=== PATIENT | male | born 1995 | race American Indian/Alaskan Native ===

== ENCOUNTER 2018-01-14 13:52 | Inpatient (IN) | payer BC ==
[2018-01-14 13:57] VITALS: BMI 25.8
--- NOTE | 2018-01-14 14:06 | C.PDOC ---
History Of Present Illness 22 year old male patient presents to the ER requesting detox for heroin. Patient states he has been inhaling heroin for x1 year. His last dose was yesterday afternoon. Patient notes this is his first detox for heroin. Patient denies fever, chills, nausea, vomiting, abdominal pain, and diarrhea, suicidal or homicidal ideation. Time Seen by Provider: 01/14/18 14:03 Chief Complaint (Nursing): Substance Abuse History Per: Patient History/Exam Limitations: no limitations Past Medical History Reviewed: Historical Data, Nursing Documentation, Vital Signs Vital Signs: Last Vital Signs Temp 98.6 F 01/14/18 16:51 Pulse 86 01/14/18 16:51 Resp 18 01/14/18 16:51 BP 128/78 01/14/18 16:51 Pulse Ox 100 01/14/18 18:03 - Medical History PMH: Asthma Family History: States: Unknown Family Hx - Social History Hx Alcohol Use: No Hx Substance Use: Yes (heroin) - Immunization History Hx Tetanus Toxoid Vaccination: No Hx Influenza Vaccination: Yes Hx Pneumococcal Vaccination: No Review Of Systems Except As Marked, All Systems Reviewed And Found Negative. Constitutional: Positive for: Other (requesting detox). Negative for: Fever, Chills Gastrointestinal: Negative for: Nausea, Vomiting, Abdominal Pain, Diarrhea Physical Exam - Physical Exam Appears: Well, Non-toxic, No Acute Distress Skin: Normal Color, Warm, Dry Head: Atraumatic, Normacephalic Eye(s): bilateral: Normal Inspection Ear(s): Bilateral: Normal Nose: Normal Oral Mucosa: Moist Throat: Normal Neck: Normal ROM, Supple Chest: Symmetrical, No Deformity Cardiovascular: Rhythm Regular Respiratory: Normal Breath Sounds, No Rales, No Rhonchi, No Wheezing Gastrointestinal/Abdominal: Soft, No Tenderness Back: No CVA Tenderness Extremity: Normal ROM (x4) Neurological/Psych: Oriented x3, Normal Speech, Normal Motor, Normal Sensation, Normal Reflexes Gait: Steady ED Course And Treatment - Laboratory Results Result Diagrams: 01/14/18 14:13 01/14/18 14:13 Lab Interpretation: Abnormal (leukocytosis, trace of leuk est and elevated wbc of urine) O2 Sat by Pulse Oximetry: 100 (RA) Pulse Ox Interpretation: Normal Medical Decision Making Medical Decision Making: Impression: requesting detox for heroin Plans: -- blood work -- keflex -- urine cx -- UA Reassess: Patient is resting comfortably. Tolerating PO. Patient will receive a detox bed for his detox for heroin. Pt was seen by section gang worker and was accepted by Dr. Abdi. RECOMMEND KEFLEX FOR URINARY TRACK INFECTION AND REPEAT CBC. PLEASE ORDER HOSPITALIST EVALUATION ON THE FLOOR. Disposition Counseled Patient/Family Regarding: Studies Performed, Diagnosis - Disposition Disposition: HOSPITALIZED Disposition Time: 16:25 Condition: STABLE - Clinical Impression Clinical Impression: Opioid dependence, Urinary tract infection, Leukocytosis - PA / SUSTAINABLE COMMUNITIES DESIGNER / Resident Statement MD/ has reviewed & agrees with the documentation as recorded. - Scribe Statement The provider has reviewed the documentation as recorded by the Arya Silverio Do All medical record entries made by the Scribe were at my direction and personally dictated by me. I have reviewed the chart and agree that the record accurately reflects my personal performance of the history, physical exam, medical decision making, and the department course for this patient. I have also personally directed, reviewed, and agree with the discharge instructions and disposition. Decision To Admit - Pt Status Changed To: Hospital Disposition Of: Inpatient - Admit Certification Admit to Inpatient:: After my assessment, the patient will require hospitalization for at least two midnights. This is because of the severity of symptoms shown, intensity of services needed, and/or the medical risk in this patient being treated as an outpatient. - InPatient: Physician Admission Certification: I certify that this patient requires 2 or more midnights of care for the following reason:: Pt admitted for opiod detox. will treat uti with keflex and repeat cbc. - . Bed Request Type: Detox Admitting Physician: Lalo Abdi Patient Diagnosis: Opioid dependence, Urinary tract infection, Leukocytosis
[2018-01-14 14:16] LABS: BASO # 0.1 K/uL (0.0-0.2); BASO % 0.5 % (0.0-2.0); EOS # 0.4 K/uL (0.0-0.7); EOS % 2.7 % (0.0-4.0); HEMOGLOBIN 13.6 g/dL (12.0-18.0); LYMPH # 1.8 K/uL (1.0-4.3); LYMPH % 13.4 % (20.0-40.0); MEAN CELL VOLUME 84.8 fL (80.0-94.0); MEAN CORPUSCULAR HEMOGLOBIN 28.1 pg (27.0-31.0); MEAN CORPUSCULAR HGB CONC 33.1 g/dL (33.0-37.0); MEAN PLATELET VOLUME 8.7 fL (7.2-11.7); MONO % 7.4 % (0.0-10.0); NEUT # 10.4 K/uL (1.8-7.0); RBC 4.83 Mil/uL (4.40-5.90); RED CELL DISTRIBUTION WIDTH 13.1 % (11.5-14.5); WHITE BLOOD COUNT 13.6 K/uL (4.8-10.8)
[2018-01-14 14:30] LABS: ALB/GLOB RATIO 1.4 (1.0-2.1); ALBUMIN 4.3 g/dL (3.5-5.0); ALT/SGPT 21 U/L (21-72); AST/SGOT 18 U/L (17-59); BLOOD UREA NITROGEN 9 mg/dL (9-20); CALCIUM 9.7 mg/dl (8.6-10.4); GFR AFRICAN-AMERICAN > 60; GFR NON-AFRICAN AMERICAN > 60
[2018-01-14 14:31] LABS: URINE AMORPHOUS SEDIMENT FEW /ul (<OCC); URINE BILIRUBIN NEGATIVE (NEGATIVE); URINE BLOOD NEGATIVE (NEGATIVE); URINE CLARITY Hazy (Clear); URINE COLOR Yellow (YELLOW); URINE GLUCOSE (UA) NORMAL (Normal); URINE LEUKOCYTE ESTERASE TRACE Leu/uL (Negative); URINE PROTEIN NEGATIVE (NEGATIVE)
[2018-01-14 14:43] LABS: BARBITURATES, UR NEGATIVE (NEGATIVE); BENZODIAZEPINES, UR NEGATIVE (NEGATIVE); PHENCYCLIDINE, UR NEGATIVE (NEGATIVE)
[2018-01-14 14:44] LABS: OPIATES, UR POSITIVE (NEGATIVE)
--- NOTE | 2018-01-14 16:45 | PCM.BM ---
<Cristobal Acosta - Last Filed: 01/14/18 16:44> Treatment Plan Problems - Problems identified on initial assessmt potential for opiate withdrawal Date Initiated: 01/14/18 Time Initiated: 16:45 Status: Active Treatment assets and liabiliti Patient Assests: cognitively intact Patient Liabilities: substance abuse - Milieu Protocol Maintain good personal hygiene: daily Encourage regular showers, daily Remind patient to perform daily oral care, daily Assist patient to perform ADL's Maintain personal safety: every shift Educate patient to report safety concerns to staff, every shift Monitor environment for contraband/sharps Medication safety: Monitor for expected outcome, potential side effects: every shift, Assess barriers to learning: every shift, Assess readiness for medication education: every shift <Yahir Lee - Last Filed: 01/18/18 08:58> - Diagnosis (1) Opioid dependence Status: Acute Interventions: 01/16/18 18:58 * Assess 7x/week regarding severity of withdrawal * Educate regarding risks, benefits, side effects and alternatives of medications * Use Motivational Interviewing for abstinence * Use CBT for relapse prevention * Medication management for withdrawal symptoms * Encourage medication assisted treatment *
[2018-01-14] MEDS ORDERED: Buprenorphine Hydrochloride 2 mg SL ONE (18:00)
[2018-01-14] MEDS: Buprenorphine Hydrochloride 2 mg SL SCH ×3 (19:03→20:58)
--- NOTE | 2018-01-15 02:16 | CP.PCM.CON ---
<Brian Simon P - Last Filed: 01/15/18 04:29> Meds Allergies/Adverse Reactions: Allergies Allergy/AdvReac Type Severity Reaction Status Date / Time No Known Allergies Allergy Verified 01/14/18 13:56 - Medications Medications: Current Medications Al Hydrox/Mg Hydrox/Simethicone (Maalox 30 Ml) 30 ml PO TID PRN PRN Reason: Indigestion / Heartburn Buprenorphine HCl (Subutex) 6 mg SL .TAPER MADELAINE PRN Reason: Taper Stop: 01/18/18 17:59 Clonidine HCl (Catapres) 0.1 mg PO Q8 PRN PRN Reason: COWS Score More or Equal to 5 Last Admin: 01/14/18 21:18 Dose: 0.1 mg Dicyclomine HCl (Bentyl) 10 mg PO Q6 PRN PRN Reason: Abdominal Cramps Last Admin: 01/14/18 21:17 Dose: 10 mg Ibuprofen (Motrin Tab) 400 mg PO Q6 PRN PRN Reason: Pain, moderate (4-7) Last Admin: 01/14/18 21:18 Dose: 400 mg Loperamide HCl (Imodium) 2 mg PO Q8 PRN PRN Reason: Diarrhea Ondansetron HCl (Zofran Tab) 4 mg PO Q8 PRN PRN Reason: Nausea/Vomiting Last Admin: 01/14/18 21:18 Dose: 4 mg Trazodone HCl (Desyrel) 50 mg PO HS [facility] Last Admin: 01/14/18 21:17 Dose: 50 mg Results - Vital Signs Recent Vital Signs: Last Vital Signs Temp 98.8 F 01/14/18 21:05 Pulse 78 01/14/18 21:05 Resp 18 01/14/18 21:05 BP 120/67 01/14/18 21:05 Pulse Ox 99 01/14/18 21:05 - Labs Result Diagrams: 01/14/18 14:13 01/14/18 14:13 Labs: Laboratory Results - last 24 hr 01/14/18 01/14/18 01/14/18 14:13 14:13 14:13 WBC 13.6 H RBC 4.83 Hgb 13.6 D Hct 40.9 MCV 84.8 D MCH 28.1 MCHC 33.1 RDW 13.1 Plt Count 234 MPV 8.7 Neut % (Auto) 76.0 H Lymph % (Auto) 13.4 L [place] % (Auto) 7.4 Eos % (Auto) 2.7 Baso % (Auto) 0.5 Neut # (Auto) 10.4 H Lymph # (Auto) 1.8 [place] # (Auto) 1.0 H Eos # (Auto) 0.4 Baso # (Auto) 0.1 Sodium 141 Potassium 3.8 Chloride 99 Carbon Dioxide 31 H Anion Gap 15 BUN 9 Creatinine 0.8 Est GFR ( Amer) > 60 Est GFR (Non-Af Amer) > 60 Random Glucose 133 H Calcium 9.7 Total Bilirubin 0.5 AST 18 ALT 21 Alkaline Phosphatase 72 Total Protein 7.3 Albumin 4.3 Globulin 3.0 Albumin/Globulin Ratio 1.4 Urine Color Yellow Urine Clarity Hazy Urine pH 7.0 Ur Specific [place] 1.021 Urine Protein Negative Urine Glucose (UA) Normal Urine Ketones Negative Urine Blood Negative Urine Nitrate Negative Urine Bilirubin Negative Urine Urobilinogen 2.0 Ur Leukocyte Esterase Trace Urine WBC (Auto) 8 H Urine RBC (Auto) 3 Amorphous Sediment Few H Urine Opiates Screen Urine Methadone Screen Ur Barbiturates Screen Ur Phencyclidine Scrn Ur Amphetamines Screen U Benzodiazepines Scrn U Oth Cocaine Metabols U Cannabinoids Screen Alcohol, Quantitative < 10 01/14/18 14:13 WBC RBC Hgb Hct MCV MCH MCHC RDW Plt Count MPV Neut % (Auto) Lymph % (Auto) [place] % (Auto) Eos % (Auto) Baso % (Auto) Neut # (Auto) Lymph # (Auto) [place] # (Auto) Eos # (Auto) Baso # (Auto) Sodium Potassium Chloride Carbon Dioxide Anion Gap BUN Creatinine Est GFR ( Amer) Est GFR (Non-Af Amer) Random Glucose Calcium Total Bilirubin AST ALT Alkaline Phosphatase Total Protein Albumin Globulin Albumin/Globulin Ratio Urine Color Urine Clarity Urine pH Ur Specific [place] Urine Protein Urine Glucose (UA) Urine Ketones Urine Blood Urine Nitrate Urine Bilirubin Urine Urobilinogen Ur Leukocyte Esterase Urine WBC (Auto) Urine RBC (Auto) Amorphous Sediment Urine Opiates Screen Positive H Urine Methadone Screen Negative Ur Barbiturates Screen Negative Ur Phencyclidine Scrn Negative Ur Amphetamines Screen Negative U Benzodiazepines Scrn Negative U Oth Cocaine Metabols Negative U Cannabinoids Screen Positive H Alcohol, Quantitative Attending/Attestation - Attestation I have personally seen and examined this patient.: Yes I have fully participated in the care of the patient.: Yes I have reviewed all pertinent clinical information: Yes Notes (Text): Assessment A/w heroin withdrawal for detox Medicine consulted for leucocytosis, mainly PMN, and wbc in urine, patient doesn 't have any clinical sighs and symptoms of active infection, urine picture is nonspecific, leucocytosis is likely form stress of heroin withdrawal. Plan No abx recommended Detox as per unit. Counselled about substance abuse. <Steve Wong - Last Filed: 01/15/18 05:50> History of Present Illness - History of Present Illness History of Present Illness: 22 yo male with PMh of substance abuse, heroin dependance in detox unit with a one week history of dark urine. Pt says he has been hydrating with only sodas and juice not water. Pt had a UA that showed trace WBC and had a slightly elavated WBC on CBC 14. Pt is asymptomatic Denies burning, itching, back pain, fevers chills, n/v, CP SOB Review of Systems - Constitutional Constitutional: As Per HPI - EENT Eyes: As Per HPI Ears: As Per HPI Nose/Mouth/Throat: As Per HPI - Cardiovascular Cardiovascular: As Per HPI - Respiratory Respiratory: As Per HPI - Gastrointestinal Gastrointestinal: As Per HPI - Genitourinary Genitourinary: As Per HPI - Reproductive: Male Reproductive:Male: As Per HPI - Musculoskeletal Musculoskeletal: As Per HPI - Integumentary Integumentary: As Per HPI Past Patient History - Infectious Disease Hx of Infectious Diseases: None - Past Medical History & Family History Past Medical History?: Yes - Past Social History Smoking Status: Light Smoker < 10 Cigarettes Daily - CARDIAC Hx Cardiac Disorders: No Hx Hypertension: No - PULMONARY Hx Asthma: Yes - NEUROLOGICAL HX Cerebrovascular Accident: No Hx Seizures: No - HEMATOLOGICAL/ONCOLOGICAL Hx Cancer: No Hx Human Immunodeficiency Virus (HIV): No - MUSCULOSKELETAL/RHEUMATOLOGICAL Hx Falls: No - GENITOURINARY/GYNECOLOGICAL Hx Sexually Transmitted Disorders: No - PSYCHIATRIC Hx Substance Use: Yes - SURGICAL HISTORY Hx Surgeries: No - ANESTHESIA Hx Anesthesia: No Meds - Medications Medications: Current Medications Al Hydrox/Mg Hydrox/Simethicone (Maalox 30 Ml) 30 ml PO TID PRN PRN Reason: Indigestion / Heartburn Buprenorphine HCl (Subutex) 6 mg SL .TAPER MADELAINE PRN Reason: Taper Stop: 01/18/18 17:59 Clonidine HCl (Catapres) 0.1 mg PO Q8 PRN PRN Reason: COWS Score More or Equal to 5 Last Admin: 01/14/18 21:18 Dose: 0.1 mg Dicyclomine HCl (Bentyl) 10 mg PO Q6 PRN PRN Reason: Abdominal Cramps Last Admin: 01/14/18 21:17 Dose: 10 mg Ibuprofen (Motrin Tab) 400 mg PO Q6 PRN PRN Reason: Pain, moderate (4-7) Last Admin: 01/14/18 21:18 Dose: 400 mg Loperamide HCl (Imodium) 2 mg PO Q8 PRN PRN Reason: Diarrhea Ondansetron HCl (Zofran Tab) 4 mg PO Q8 PRN PRN Reason: Nausea/Vomiting Last Admin: 01/14/18 21:18 Dose: 4 mg Trazodone HCl (Desyrel) 50 mg PO HS [facility] Last Admin: 01/14/18 21:17 Dose: 50 mg Physical Exam - Constitutional Appears: Well, Non-toxic, No Acute Distress - Head Exam Head Exam: ATRAUMATIC, NORMAL INSPECTION - Eye Exam Eye Exam: EOMI, Normal appearance - ENT Exam ENT Exam: Mucous Membranes Moist, Normal Exam - Neck Exam Neck exam: Positive for: Normal Inspection - Respiratory Exam Respiratory Exam: Clear to Auscultation Bilateral, NORMAL BREATHING PATTERN - Cardiovascular Exam Cardiovascular Exam: RRR, +S1, +S2. absent: Systolic Murmur - GI/Abdominal Exam GI & Abdominal Exam: Soft. absent: Tenderness - Back Exam Back exam: NORMAL INSPECTION. absent: tenderness - Neurological Exam Neurological exam: Alert, CN II-XII Intact, Normal Gait, Oriented x3 - Psychiatric Exam Psychiatric exam: Normal Affect, Normal Mood - Skin Skin Exam: Dry, Normal Color, Warm Results - Vital Signs Recent Vital Signs: Last Vital Signs Temp 98.8 F 01/14/18 21:05 Pulse 78 01/14/18 21:05 Resp 18 01/14/18 21:05 BP 120/67 01/14/18 21:05 Pulse Ox 99 01/14/18 21:05 - Labs Result Diagrams: 01/14/18 14:13 01/14/18 14:13 Labs: Laboratory Results - last 24 hr 01/14/18 01/14/18 01/14/18 14:13 14:13 14:13 WBC 13.6 H RBC 4.83 Hgb 13.6 D Hct 40.9 MCV 84.8 D MCH 28.1 MCHC 33.1 RDW 13.1 Plt Count 234 MPV 8.7 Neut % (Auto) 76.0 H Lymph % (Auto) 13.4 L [place] % (Auto) 7.4 Eos % (Auto) 2.7 Baso % (Auto) 0.5 Neut # (Auto) 10.4 H Lymph # (Auto) 1.8 [place] # (Auto) 1.0 H Eos # (Auto) 0.4 Baso # (Auto) 0.1 Sodium 141 Potassium 3.8 Chloride 99 Carbon Dioxide 31 H Anion Gap 15 BUN 9 Creatinine 0.8 Est GFR ( Amer) > 60 Est GFR (Non-Af Amer) > 60 Random Glucose 133 H Calcium 9.7 Total Bilirubin 0.5 AST 18 ALT 21 Alkaline Phosphatase 72 Total Protein 7.3 Albumin 4.3 Globulin 3.0 Albumin/Globulin Ratio 1.4 Urine Color Yellow Urine Clarity Hazy Urine pH 7.0 Ur Specific [place] 1.021 Urine Protein Negative Urine Glucose (UA) Normal Urine Ketones Negative Urine Blood Negative Urine Nitrate Negative Urine Bilirubin Negative Urine Urobilinogen 2.0 Ur Leukocyte Esterase Trace Urine WBC (Auto) 8 H Urine RBC (Auto) 3 Amorphous Sediment Few H Urine Opiates Screen Urine Methadone Screen Ur Barbiturates Screen Ur Phencyclidine Scrn Ur Amphetamines Screen U Benzodiazepines Scrn U Oth Cocaine Metabols U Cannabinoids Screen Alcohol, Quantitative < 10 01/14/18 14:13 WBC RBC Hgb Hct MCV MCH MCHC RDW Plt Count MPV Neut % (Auto) Lymph % (Auto) [place] % (Auto) Eos % (Auto) Baso % (Auto) Neut # (Auto) Lymph # (Auto) [place] # (Auto) Eos # (Auto) Baso # (Auto) Sodium Potassium Chloride Carbon Dioxide Anion Gap BUN Creatinine Est GFR ( Amer) Est GFR (Non-Af Amer) Random Glucose Calcium Total Bilirubin AST ALT Alkaline Phosphatase Total Protein Albumin Globulin Albumin/Globulin Ratio Urine Color Urine Clarity Urine pH Ur Specific [place] Urine Protein Urine Glucose (UA) Urine Ketones Urine Blood Urine Nitrate Urine Bilirubin Urine Urobilinogen Ur Leukocyte Esterase Urine WBC (Auto) Urine RBC (Auto) Amorphous Sediment Urine Opiates Screen Positive H Urine Methadone Screen Negative Ur Barbiturates Screen Negative Ur Phencyclidine Scrn Negative Ur Amphetamines Screen Negative U Benzodiazepines Scrn Negative U Oth Cocaine Metabols Negative U Cannabinoids Screen Positive H Alcohol, Quantitative Assessment & Plan - Assessment and Plan (Free Text) Assessment: Leukocytosis: -asymptomatic, afebrile -no medical intervention need at this time substance abuse: -pt counseled -lifestyle modification recommeded
[2018-01-15] MEDS ORDERED: Buprenorphine Hydrochloride 2 mg SL ONE (15:22)
[2018-01-15] MEDS ORDERED: Buprenorphine Hydrochloride 2 mg SL SCH (18:00)
--- NOTE | 2018-01-15 18:09 | PCM.PSYCH ---
Initial Psychiatric Evaluation - Initial Psychiatric Evaluation Type of Admission: Voluntary Legal Status: Capacity Chief Complaint (in patient's own words): I need help from his substance use. I want to stop using drugs. History of Present Illness and Precipitating Events: Patient is a 22 years old, single, employed, male with no previous psychiatric history was admitted due to withdrawing from heroin and cannabis. Heroin: Patient started using heroin one year ago. Prior to that he was taking Percocet. Initially he was prescribed Percocet 30 mg daily. He increased taking Percocet. He was taking way more than prescribed for about 2 years and after that he switched to heroin. Currently he was using almost 1 bundle daily. He was dividing 1 bundle and was taking 3 times daily, snorting or IV. Last used reported 2 days ago. Denied any previous detox or rehabs. Cannabis: He started using cannabis at 17 years of age, was using once a month. His last used was 5 days ago. HI and he was using 1 g. He smokes half pack of cigarettes daily and is requesting for nicotine patch. Patient was born in [place] and has high school graduation. He is working. He is single and has 111 months old daughter would lives with her mother. Patient lives with his father. His height is 5 feet 10 inches and weight is 180 pounds. Patient does not want to go to any program for follow-up care after discharge from the hospital. Current Medications: Active Medications Generic Name Dose Route Start Last Admin Trade Name Freq PRN Reason Stop Dose Admin Al Hydrox/Mg Hydrox/Simethicone 30 ml 01/14/18 17:35 Maalox 30 Ml PO TID PRN Indigestion / Heartburn Buprenorphine HCl 4 mg 01/16/18 10:00 Subutex SL 01/19/18 09:59 .TAPER MADELAINE Taper Clonidine HCl 0.1 mg 01/14/18 17:32 01/14/18 21:18 Catapres PO 0.1 mg Q8 PRN Administration COWS Score More or Equal to 5 Dicyclomine HCl 10 mg 01/14/18 17:36 01/14/18 21:17 Bentyl PO 10 mg Q6 PRN Administration Abdominal Cramps Hydrocortisone 0 gm 01/15/18 18:00 Anusol-Hc OK BID MADELAINE Ibuprofen 400 mg 01/14/18 17:36 01/15/18 11:55 Motrin Tab PO 400 mg Q6 PRN Administration Pain, moderate (4-7) Loperamide HCl 2 mg 01/14/18 17:35 Imodium PO Q8 PRN Diarrhea Nicotine 1 patch 01/15/18 13:15 01/15/18 13:26 Nicoderm Cq TD 1 patch DAILY MADELAINE Administration Ondansetron HCl 4 mg 01/14/18 17:35 01/14/18 21:18 Zofran Tab PO 4 mg Q8 PRN Administration Nausea/Vomiting Trazodone HCl 50 mg 01/14/18 22:00 01/14/18 21:17 Desyrel PO 50 mg HS MADELAINE Administration Past Psychiatric History - Past Psychiatric History Previous Treatment History: None History of Abuse: None reported History of ETOH/Drug Use: See HPI History of Family Illness: None reported Pertinent Medical Hx (Current Medical&Sleep Prob, Allergies): Allergies Allergy/AdvReac Type Severity Reaction Status Date / Time No Known Allergies Allergy Verified 01/14/18 13:56 RX: No Known Home Med 01/14/18 Asthma UTI Review of Systems - Psychiatric Psychiatric: As Per HPI Mental Status Examination - Personal Presentation Personal Presentation: Looks stated age - Affect Affect: Other (Appropriate) - Motor Activity Motor Activity: Calm - Reliability in Providing Information Reliability in Providing Information: Fair - Speech Speech: Organized - Mood Mood: Anxious - Formal Thought Process Formal Thought Process: No Impairment - Hallucinations/Delusions Hallucinations: Other (None reported) Delusions: Other - Obsessions/Compulsions Obsessions: None Compulsions: None - Cognitive Functions Orientation: Person, Place, Situation, Time Sensorium: Alert Attention/Concentration: Attentive Abstract Thinking: [place] Estimate of Intelligence: Average Judgement: Intact, as evidence by: Insight regarding need for hospitalization Memory: Recent intact, as evidence by: Ability to recall events of the day, Remote intact, as evidenced by: Ability to recall historical events - Risk Risk: Withdrawal, Diminished functioning - Strength & Assets Inventory Strength & Assets Inventory: Family support, Cooperative - Limitations Limitations: Other DSM 5 DX - DSM 5 DSM 5 Diagnosis: Opiate use disorder severe Cannabis use disorder severe - Recommended/Plan of Treatment Treatment Recommendations and Plan of Treatment: Patient education. Supportive therapy. CBT for relapse prevention. [place] for abstinence. Subutex taper for opiate withdrawal symptoms. Other when necessary medication. Projected ELOS: 4-5 days - Smoking Cessation Smoking Cessation Initiated: Yes
[2018-01-15] MEDS: Hydrocortisone 2.5% Rectal Cream(30 gm) PR SCH ×2 (18:28→19:41)
[2018-01-16] MEDS: Aluminum Hydroxide/Magnesium Hydroxide Susp (30 mL) PO PRN ×2 (08:39→18:12)
[2018-01-16] MEDS: Buprenorphine Hydrochloride 2 mg SL SCH (09:51)
[2018-01-16 14:16] VITALS: RESP 18
--- NOTE | 2018-01-16 15:37 | PCM.PYCHPN ---
Psychiatric Progress Note - Psychiatric Progress Note Patient seen today, length of contact: 15 min Patient Chief Complaint: "better" Problems Identified/Issues Discussed: The pt is seen, chart reviewed, case discussed with staff. The pt is compliant with medications and reports no side-effects. Symptoms are improving but needs more time to stabilize. Pt attends groups and activities. Support given, psycho-education provided. After care discussed. Medication Change: Yes (detox changes daily) Medical Record Reviewed: Yes Mental Status Examination - Cognitive Function Orientation: Person, Place, Situation, Time Memory: Intact Attention: WNL Concentration: Poor Association: WNL Fund of Knowledge: WNL - Mood Mood: Anxious - Affect Affect: Constricted - Speech Speech: Appropriate - Formal Thought Process Formal Thought Process: No Impairment - Suicidal Ideation Suicidal Ideation: No - Homicidal Ideation Homicidal Ideation: No Goal/Treatment Plan - Goal/Treatment Plan Need for Continued Stay: Discharge may exacerbated symptoms, Severe functional impairment Progress Toward Problem(s) and Goals/Treatment Plan: Continue medications Support and psychoeducation daily Attend groups and activities daily After care planning by NIC Estimated Date of D/C: 01/18/18
[2018-01-17] MEDS: Buprenorphine Hydrochloride 2 mg SL SCH (09:23)
[2018-01-17] MEDS: Aluminum Hydroxide/Magnesium Hydroxide Susp (30 mL) PO PRN (11:26)
--- NOTE | 2018-01-18 08:46 | PCM.PYCHPN ---
Psychiatric Progress Note - Psychiatric Progress Note Patient seen today, length of contact: 15 min Patient Chief Complaint: "Sleep is not good" Problems Identified/Issues Discussed: The pt is seen, chart reviewed, case discussed with staff. Support and psychoeducation given, CBT and [place] used briefly No new symptoms reported, improving slowly and needs more time No SEs from medications, risks discussed. After care discussed Medication Change: Yes (detox changes daily) Medical Record Reviewed: Yes Mental Status Examination - Cognitive Function Orientation: Person, Place, Situation, Time Memory: Intact Attention: WNL Concentration: Poor Association: WNL Fund of Knowledge: WNL - Mood Mood: Anxious - Affect Affect: Constricted - Speech Speech: Appropriate - Formal Thought Process Formal Thought Process: No Impairment - Suicidal Ideation Suicidal Ideation: No - Homicidal Ideation Homicidal Ideation: No Goal/Treatment Plan - Goal/Treatment Plan Need for Continued Stay: Discharge may exacerbated symptoms, Severe functional impairment Progress Toward Problem(s) and Goals/Treatment Plan: Continue medications Support and psychoeducation daily Attend groups and activities daily After care planning by NIC Estimated Date of D/C: 01/18/18
--- NOTE | 2018-01-18 08:46 | PCM.PYCHDC ---
Mental Status Examination - Mental Status Examination Orientation: Person Discharge Summary - Discharge Note Consultations:: List each consultation separately and include: 1. Reason for request. 2. Findings. 3. Follow-up Summary of Hospital Course include:: 1. Description of specific treatment plan utilized for patients during their course of treatmen. 2. Summarize the time- course for resolution of acute symptoms and/or regressed behaviors. 3. Describe issues identified and worked on during hospitalization. 4. Describe medication utilized. 5. Describe medical problems identified and treated. 6. Reassessment of suicide risk Summary of Hospital Course: He will go to [facility] - Final Diagnosis (DSM 5) Condition upon Discharge: STABLE Disposition: HOME/ ROUTINE Prescriptions/Medication Reconciliation: QUEtiapine [SEROquel] 50 mg PO HS #30 tab traZODone [Desyrel] 50 mg PO HS #30 tab
[2018-01-18] MEDS: Buprenorphine Hydrochloride 2 mg SL SCH (10:08)
[2018-01-18 10:20] VITALS: BP 127/73; PULSE 69; TEMP 97.6; O2SAT 100
== END 2018-01-18 10:30 | disposition home or self-care (01) | DRG 895 ==
LOC: C.ER 13:52 → C.7D 16:25 → UNDOADMOB 16:25 → C.7D 01-17 17:52
PROC: HZ2ZZZZ Detoxification Services for Substance Abuse Treatment (ICD-10-PCS; principal; 2018-01-14)
PROC: HZ59ZZZ Individual Psychotherapy for Substance Abuse Treatment, Supportive (ICD-10-PCS; 2018-01-14)
PROC: HZ56ZZZ Individual Psychotherapy for Substance Abuse Treatment, Psychoeducation (ICD-10-PCS; 2018-01-14)
DX: F11.23 Opioid dependence with withdrawal (principal); F12.20 Cannabis dependence, uncomplicated; N39.0 Urinary tract infection, site not specified; F17.210 Nicotine dependence, cigarettes, uncomplicated; J45.909 Unspecified asthma, uncomplicated; D72.829 Elevated white blood cell count, unspecified